=== PATIENT | female | born 1950 | race Caucasian/White ===

== ENCOUNTER 2023-10-26 08:36 | Outpatient (RCR) | payer MEDICARE, BC, SELFPAY ==
--- NOTE | 2023-10-26 09:36 | PT.OPEX ---
PT [facility] Eval Start: 10/26/23 07:47 Freq: Status: Active Protocol: Document 10/26/23 09:25 KLWallace (Rec: 10/26/23 09:36 KLV [id number]) E-signed By Anne-Marie Briceno, PT Physical Therapy Outpatient Evaluation Insurance Information Recert Due Date 01/20/24 Insurance Name Medicare B,Blue Cross/[employer] Medical Diagnosis Right hip OA Pre-op right CARLOS Treating Diagnosis Right hip pain, limited hip ROM, gross LE weakness, antalgic gait Referring MD Nolasco Subjective Subjective Brittanie reports to PT with primary complaint of chronic right hip pain affecting her ability to stand, walk, negotiate stairs and sit for extended periods. X-ray indicating severe OA and candidate for surgery. She notes she is borrowing a friends 4WW, SEC. Has 2 steps to enter house that she feels she would be able to use walker with. Bed, bath and laundry on the main level. able to help as needed . Has a shower bench. Will be doing OP PT in [place]. She does note possible L RC injury and R wrist fx w/surgical intervention however not too concerned with using AD following surgery. PMH: R wrist surgery, fibromyalgia, osteoporosis Pain Comments 10/16 Date of Last Physician Visit 10/16/23 Date of Next Physician Visit 11/12/23 Date of Surgery (If applicable) 11/12/23 Current Work Status Retired Objective Other/Pertinent Objective Antalgic gait: limited stance time R and limited terminal hip extension IR/ER: 5/30 (left 15/45) Negative straight leg raise for tension signs. Severe groin pain with hip ROM. Strength testing limited d/t pain Functional Test Performed & Score LEFS: 1880 Assessment Assessment/Impression Brittanie is a 73 year old female presenting to PT for preparation of upcoming R CARLOS DOS 11/12/23 d/t end stage OA. Session focused on education of anterior hip precautions, post-operative fall prevention precautions, transfers, gait with AD, stair negotiation, post-operative exercises. She is able to verbalize precautions and demonstrated independence with exercises, gait and stairs. She is appropriate to proceed with surgery at this time. Primary Functional Limitations Walking, standing, sitting, negotiating stairs Plan of Care Rehabilitation Potential Good Physical Therapy Goals By end of session today, patient will... Demonstrate appropriate gait pattern with FWW to utilize post surgery for optimal safety when ambulating Demonstrate ability to negotiate stairs using appropriate stair pattern post surgery for optimal safety when at home and in community Verbalize understanding of most appropriate home set up including needed equipment for optimal safety and recovery post surgery Be independent in HEP program to show ability to perform appropriate exercises post surgery Treatment Plan/Direct Interventions Gait Training,Ice/Cold/ Vasopneumatic,Joint Mobilization,Manual Therapy, Neuromuscular Re-ed,Self-Care/ Home Management,Therapeutic Activities,Therapeutic Exercises Frequency/Duration 1 time prior to surgery Patient Will Be Discharged From Therapy Completion of LTG(s), Independent w/HEP, Independently Progressing Evaluation Billing Untimed Code Treatment Minutes 20 Complexity Low Certification Information Initial Certification Date 10/26/23 Ending Certification Date 01/20/24 Provider Signature Required Yes Provider Signature Shows Agreement With POC & Medical Necessity Physician NPI Number Write NPI# Here Physician Comment/Change : Physician Signature & Date Requested Please Sign/Date Here
== END 2023-11-06 08:44 | disposition home or self-care (01) ==
PROVIDERS: Visit Provider Orthopaedic Surgery Sports Medicine
DX: M16.11 Unilateral primary osteoarthritis, right hip (principal); Z96.641 Presence of right artificial hip joint; M25.551 Pain in right hip; Z74.09 Other reduced mobility; R26.9 Unspecified abnormalities of gait and mobility; R29.898 Other symptoms and signs involving the musculoskeletal system; Z51.89 Encounter for other specified aftercare
CPT/HCPCS: 97161; 97535

== ENCOUNTER 2023-11-15 05:51 | Day surgery (SDC) | payer MEDICARE, BC, SELFPAY ==
[2023-11-15] VITALS (26 sets, daily range): BP systolic 118–156; BP diastolic 54–76; PULSE 48–95; RESP 12–16; TEMP 36–36.8; O2SAT 91–100; BMI 23.6
[2023-11-15] MEDS: OXYCODONE (CR) 10 MG TAB.ER.12H PO (06:30)
[2023-11-15] MEDS: ACETAMINOPHEN 500 MG TABLET 1000 MG PO ×2 (06:30→18:30)
[2023-11-15] MEDS: LACTATED RINGERS 1000 ML 1,000 ML 100 ML IV ×2 (06:45→12:51)
[2023-11-15] MEDS: SODIUM CHLORIDE 0.9 % (FLUSH) 10 ML SYRINGE IVF (06:45)
[2023-11-15] MEDS: CELECOXIB 200 MG CAPSULE PO (07:00)
--- NOTE | 2023-11-15 07:07 | SUR.PREOP ---
TIME?OUT:?0709 PT/RN/MDA?VERIFICATION?OF?SURGICAL?SITE,?PROCEDURE,?AND?CONSENT OBTAINED?PRIOR?TO?INVASIVE?PROCEDURE.
[2023-11-15] MEDS: MIDAZOLAM HCL 1 MG/ML inj IVP (07:10)
[2023-11-15] MEDS: fentaNYL 100 MCG/2 ML inj IVP (07:10)
--- NOTE | 2023-11-15 07:21 | CRLHL7_ITS ---
For Patients: As a result of the Cures Act, medical imaging exams and procedure reports are released immediately into your electronic medical record. You may view this report before your referring provider. If you have questions, please contact your health care provider. Indication: Hip replacement surgery Technique: AP hip fluoroscopic images. Fluoroscopy time 76.9 seconds. Findings/Impression: Hardware from a right total hip arthroplasty is in satisfactory position. Dictated by Ralph Martinez MD @ 11/16/2023 5:19:49 AM (Electronically Signed)
[2023-11-15] MEDS: CEFAZOLIN 2 GM INJ IVP (07:48)
[2023-11-15] MEDS: TRANEXAMIC ACID 100 MG/ML INJ 1000 MG IV (07:58)
--- NOTE | 2023-11-15 08:13 | P.NB_ITS ---
Nerve Block Nerve Block Time Seen by Provider: 07:14 Date Seen: 11/15/23 Type of block requested by surgeon for post-operative analgesia: SHERRELL/LFCN Side: right Time out performed: Yes Verification of patient name: Yes Verification of date of : Yes Site marking: site marked Name of person performing procedure: Rafael Continuous monitoring Was continuous monitoring of O2 sat, B/P, technician automatic, recorded every 15 minutes?: Yes Procedure Checklist: sterile prep, needles and gloves Ultrasound guided. Images saved: Yes Medications given in 5ml increments after negative aspiration: Ropivicaine %: 0.5 mL: 30 Needle gauge: 20 Decadron (mg): 10 Precedex (mcg): 25 Patient tolerated procedure well: Yes Additional comments: Needle noted below psoas tendon needle noted adjacent to LFCN Block Charges Block Charge (with Pro Fee): Other Periph Nerve Block Use of Ultrasound Machine for Block: Yes- US Guidance/pain block
--- NOTE | 2023-11-15 08:14 | W.ANESCHARGE ---
Anesthesia Charges Start Date/Time Anesthesia Start Date: 11/15/23 Anesthesia Start Time: 07:23 Stop Date/Time Anesthesia Stop Date: 11/15/23 Anesthesia Stop Time: 09:50 Summary Extremes of Age - Over 70 or under 1: MDA
--- NOTE | 2023-11-15 09:05 | CRLHL7_ITS ---
For Patients: As a result of the Cures Act, medical imaging exams and procedure reports are released immediately into your electronic medical record. You may view this report before your referring provider. If you have questions, please contact your health care provider. Indication: POST OP CARLOS Technique: AP pelvis and lateral view right hip Findings/Impression: Hardware from a right total hip arthroplasty is in satisfactory position. Bone alignment is normal. No sign of acute fracture. Postop changes are within normal limits. Dictated by Ralph Martinez MD @ 11/16/2023 5:21:32 AM (Electronically Signed)
--- NOTE | 2023-11-15 09:07 | PM.ORPRC ---
Procedure Note Date of procedure: 11/15/23 Procedure: PREOPERATIVE DIAGNOSIS: Right hip osteoarthritis POSTOPERATIVE DIAGNOSIS: Right hip osteoarthritis NAME OF OPERATION: Right total hip arthroplasty SURGEON: Buddy Maier MD BOWLING OR SKATING FRONT DESK CLERK: Apolonia Vigil PA-C, WILLY Singleton IMPLANTS: 1. [employer] [place] # 52 sector ingrowth cup 2. 36 x 52 neutral polyethylene 3. Actis # 6 standard collared ingrowth stem 4. 36 + 1.5 ceramic femoral head ANESTHESIA: Spinal ESTIMATED BLOOD LOSS: 250 cc COMPLICATIONS: None SPECIMENS: None DRAINS: None PREOPERATIVE ANTIBIOTICS: Ancef 1 g INDICATIONS: The patient is a 73-year-old with a longstanding history of severe, unrelenting right hip pain secondary to end-stage right hip osteoarthritis. Despite appropriate nonoperative management, including activity modification, use of an assist device, anti-inflammatories, [id number]-[id number] pain medication, physical therapy and injections, they continue to have pain and disability. Operative intervention was offered. The risks, benefits and expected outcomes were discussed in detail. These included but were not limited to: Infection, bleeding, injury to blood vessel or nerve, venous thromboembolism. All questions were answered to their satisfaction. Use of an perinatal breastfeeding assistant was necessary throughout the case for patient positioning and safety, soft tissue retraction and closure. PROCEDURE: Spinal anesthesia was administered. The patient was placed supine on the [place] table. The perinatal breastfeeding assistant made sure the patient was properly positioned. The right hip was prepped and draped in the usual sterile fashion. The image intensifier was brought in for a perfect AP pelvis and a perfect double tear drop AP view of each hip which were used for intraoperative templating with our fluoroscopic guide. An oblique incision was made 3 cm distal and 3 cm lateral to the anterior superior iliac spine. The perinatal breastfeeding assistant retracted the soft tissues to protect them. Subcutaneous dissection was taken with electrocautery to the superficial fascia. The fascia was divided in line with the incision. Blunt dissection was carried medially to the tensor fascia vivien and sartorius interval. Deep dissection was carried with electrocautery. The circumflex vessels were cauterized and divided. The capsule was exposed and then divided in a T-fashion, tagged with #1 Ethibond sutures. Retractors were placed in the joint, held by the perinatal breastfeeding assistant. The corkscrew was placed in the femoral head. The neck cut was made in the subcapital region. We made a second neck cut more distal. The napkin ring of bone was removed. The femoral head was removed intact. Acetabular retractors were placed, held by the perinatal breastfeeding assistant. The labrum was sharply debrided. The capsule was released. The 43 mm reamer was used to the true medial wall. We then enlarged in 2 mm increments using the image intensifier for our reamer placement. We impacted the cup which had excellent purchase. We placed the polyethylene. Attention was then turned to the proximal femur. The limb was placed in 140 degrees of external rotation, maximum extension and adduction. A significant amount of time was spent releasing the capsule to allow us to deliver the femur into the wound and complete the femoral side safely. Retractors were held by the perinatal breastfeeding assistant throughout the femoral preparation. The boxer operator and canal finder were used. Broaches were used to a stable size. The calcar reamer was used. Trial components were placed. The hip was reduced and was found to be stable with appropriate soft tissue tension. Length and offset had been nicely restored using the image intensifier and our fluoroscopic guide. Trial components were removed. The stem was impacted. We placed the femoral head. Again, the hip was reduced and was found to be stable with appropriate soft tissue tension. Length and offset had been nicely restored. The perinatal breastfeeding assistant did a three minute dilute Betadine solution soak. The perinatal breastfeeding assistant irrigated the wound with 3 liters of normal saline via pulse lavage. The perinatal breastfeeding assistant repaired the anterior capsule with a #1 Vicryl and our previously placed Ethibond sutures. The perinatal breastfeeding assistant closed the fascia over the tensor fascia vivien with a #1 PDO Stratafix, subcutaneous tissues with 2-0 Vicryl, skin with a running 3-0 Stratafix and glue. A dry dressing was applied by the perinatal breastfeeding assistant. Sponge and needle counts were correct x 2. The patient tolerated the procedure well; there were no apparent complications. They were awakened and extubated in the operating room, sent to the Post-Anesthesia Care Unit in satisfactory condition. PLAN: 1. The patient will be mobilized with physical therapy, weight-bearing as tolerates 2. Xarelto x 5 days then aspirin x 30 days will be used for DVT prophylaxis 3. The patient will be discharged once medically appropriate
--- NOTE | 2023-11-15 09:54 | W.ANESCHARGE ---
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
--- NOTE | 2023-11-15 10:23 | SUR.PHASEI ---
patient met discharge criteria per anesthesia
[2023-11-15] MEDS: OXYCODONE 5 MG TABLET PO ×2 (12:05→21:34)
--- NOTE | 2023-11-15 14:52 | SUR.PHASEII ---
OT came to work with patient, patient became dizzy & OT did not feel safe having patient go to PT. Dr. Maier updated - decision was made to admit to Med/Surg. Report given to DESTINY Ybarra. Patient brought to room 256.
--- NOTE | 2023-11-15 16:57 | PC.NURSE ---
Addendum entered by Amada Durán RN 11/15/23 17:35: Patient voided and was incont, still having numbness and is unaware when she is voiding. Original Note: Shift Summary: Patient pleasant and cooperative. Up with one assist, walker and gait belt. Has not voided yet. Vitals stable and WNL, maintains o2 sat >90% on RA. Denies nausea, rates pain 3/10 and denies need for medication at this time. Dressing dry and intact with ice applied.
[2023-11-15] MEDS: SENNOSIDES 1 TAB TABLET 2 TAB PO (21:34)
[2023-11-16 03:00] VITALS: BP 149/60; PULSE 81; RESP 16; TEMP 36.3; O2SAT 94
[2023-11-16] MEDS: ACETAMINOPHEN 500 MG TABLET 1000 MG PO (06:14)
--- NOTE | 2023-11-16 06:36 | PC.NURSE ---
End of shift [id number]: A&O pleasant and cooperative. VSS. Reporting pain in hip 06/16. Denies need for PRN pain medication. Pt requested to sleep overnight and not be woken up for scheduled tylenol. Dressing to hip c/d/i. Up w/ SBA walker and GB. Tolerating diet. Using call light appropriately.
[2023-11-16 07:45] VITALS: BP 149/65; PULSE 76; PULSE 83; RESP 16; TEMP 36.8; O2SAT 94
--- NOTE | 2023-11-16 07:52 | P.ORPN_ITS ---
Subjective Subjective Time Seen by Provider: 06:45 Date Seen: 11/16/23 Principal diagnosis: Day 1 s/p right CARLOS, Dr. Maier Interval history: Brittanie is doing well and resting comfortably in her bed. The original intent was for Brittanie to be a [id number] yesterday, however postop she experienced some nausea, dizziness and bilateral feet numbness and it was recommended to stay the night. This morning, she reports she feels great. Pain is 1/10. Denies: Chest pain, shortness of breath, fever, chills, nausea, vomiting, numbness and tingling distally. Denies bowel movement overnight, but admits to flatulence. No acute concerns. Patient feels ready to be discharged home. Ortho Exam Narrative Exam Narrative: Incision/Dressing: Dressing appears clean and dry. No drainage present. Mepilex intact. Right hip appears moderately swollen but supple with no obvious erythema, fluctuance or excessive warmth. Early signs of ecchymosis present mid- bandage. No erythematous streaking. Warmth around the wound is appropriate. Ice is being utilized as needed. CMS: Intact distally with 2+ Dorsalis pedis and Posterior Tibial pulses. 5/5 motor strength dorsal and plantar flexion. Confirmed sensation distally. Calf: Bilateral calves are supple, with no swelling, pain, tenderness, erythema, discoloration or coolness to the touch. Constitutional: Patient is alert and oriented x3. Patient is in no acute distress and converses without labored breathing. Patient is able to make decisions and demonstrates good insight. Patient is pleasant and cooperative. Affect is full range and appropriate for the circumstances. Const Vital Signs, click to edit/add: Vital Signs - 24 hr 11/15/23 09:46 11/15/23 09:50 11/15/23 09:55 Temperature 97.5 F L 97.5 F L 97.5 F L Pulse Rate 60 53 L 56 L Pulse Rate [Pulse Oximeter] Pulse Rate [Right Dorsalis Pedis] Respiratory Rate 14 13 12 Blood Pressure 118/69 123/60 132/61 Blood Pressure [Right Arm] Pulse Oximetry 98 94 97 Oxygen Delivery Method Room Air Room Air Room Air Oxygen Flow Rate 11/15/23 10:00 11/15/23 10:05 11/15/23 10:10 Temperature 97.5 F L 97.5 F L 97.5 F L Pulse Rate 61 56 L 62 Pulse Rate [Pulse Oximeter] Pulse Rate [Right Dorsalis Pedis] Respiratory Rate 12 12 14 Blood Pressure 131/69 137/66 148/67 H Blood Pressure [Right Arm] Pulse Oximetry 98 96 96 Oxygen Delivery Method Room Air Room Air Room Air Oxygen Flow Rate 11/15/23 10:15 11/15/23 10:20 11/15/23 10:30 Temperature 97 F L 96.8 F L Pulse Rate 55 L 53 L 48 L Pulse Rate [Pulse Oximeter] Pulse Rate [Right Dorsalis Pedis] Respiratory Rate 14 14 14 Blood Pressure 140/67 H 141/60 H 141/60 H Blood Pressure [Right Arm] Pulse Oximetry 96 94 94 Oxygen Delivery Method Room Air Room Air Nasal Cannula Oxygen Flow Rate 2 11/15/23 10:45 11/15/23 11:00 11/15/23 11:15 Temperature Pulse Rate 58 L 57 L 68 Pulse Rate [Pulse Oximeter] Pulse Rate [Right Dorsalis Pedis] Respiratory Rate 14 14 16 Blood Pressure 137/65 139/58 L 131/54 L Blood Pressure [Right Arm] Pulse Oximetry 100 100 99 Oxygen Delivery Method Nasal Cannula Nasal Cannula Room Air Oxygen Flow Rate 2 2 11/15/23 11:30 11/15/23 12:00 11/15/23 12:30 Temperature Pulse Rate 63 65 69 Pulse Rate [Pulse Oximeter] Pulse Rate [Right Dorsalis Pedis] Respiratory Rate 16 16 16 Blood Pressure 136/55 L 133/56 L 142/56 H Blood Pressure [Right Arm] Pulse Oximetry 93 92 98 Oxygen Delivery Method Room Air Room Air Room Air Oxygen Flow Rate 11/15/23 13:00 11/15/23 14:58 11/15/23 15:00 Temperature 98 F Pulse Rate 70 95 Pulse Rate [Pulse Oximeter] Pulse Rate [Right Dorsalis Pedis] Respiratory Rate 16 16 16 Blood Pressure 139/76 137/64 Blood Pressure [Right Arm] Pulse Oximetry 99 91 91 Oxygen Delivery Method Room Air Room Air Room Air Oxygen Flow Rate 2 11/15/23 16:26 11/15/23 17:33 11/15/23 19:00 Temperature 98 F 97.8 F 98 F Pulse Rate 64 90 Pulse Rate [Pulse Oximeter] Pulse Rate [Right Dorsalis Pedis] 83 Respiratory Rate 15 16 16 Blood Pressure 144/62 H 145/75 H Blood Pressure [Right Arm] 144/69 H Pulse Oximetry 95 94 97 Oxygen Delivery Method Room Air Room Air Oxygen Flow Rate 11/15/23 23:30 11/15/23 23:38 11/16/23 03:00 Temperature 98.2 F 97.3 F L Pulse Rate Pulse Rate [Pulse Oximeter] 69 81 Pulse Rate [Right Dorsalis Pedis] Respiratory Rate 16 16 16 Blood Pressure Blood Pressure [Right Arm] 152/64 H 149/60 H Pulse Oximetry 94 94 94 Oxygen Delivery Method Room Air Room Air Room Air Oxygen Flow Rate Assessment and Plan Assessment and plan (1) Status post total hip replacement, right: Problem details: DOS: 11/15/23. Dr. Maier Status: Acute Assessment and Plan: - Complete 23 hour perioperative antibiotics. - PT/OT consults for education and assistance. Outpatient PT already scheduled to begin next week. - Weight bear as tolerated with a walker for assistance. - Prescribed analgesics as needed. Patient is content with current narcotic medications. Minimize narcotic pain medication use; wean off and discontinue as soon as possible. - DVT prophylaxis: Xarelto x 5 days followed by aspirin 81 mg BID x 30 days. Also, frequent ambulation and ankle pumps when sedentary. - Social consult for discharge planning. - Anticipate patient will be discharged to home today if the patient remains medically stable, pain is controlled and is safe with ambulation. - Return to clinic in 1 week for a wound check. Mepilex dressing will be removed at this appointment. Remove sooner if dressing becomes saturated. - Return to clinic in [address] Maier. - Phone Orthopedics with any questions or concerns. [phone]
[2023-11-16] MEDS: RIVAROXABAN 10 MG TABLET PO (09:04)
[2023-11-16] MEDS: SENNOSIDES 1 TAB TABLET 2 TAB PO (09:05)
[2023-11-16 11:14] VITALS: BP 135/56; PULSE 86; RESP 16; TEMP 36.9; O2SAT 94
--- NOTE | 2023-11-16 12:02 | PC.NURSE ---
discharge. pt is very pleasant. she is Up with one assist, walker and gait belt. she is eating, drinking and voiding. Dressing is C/D/I. with ice applied. SL was d/c went over discharge packet with pt and family. went over medications., appointment, education and instruction. pt went over and signed personal belonging sheet. pt got a w/c ride to car and was helped in to car.
== END 2023-11-16 12:00 | disposition home or self-care (01) ==
LOC: OR 05:53 → MEDSURG 15:04
PROVIDERS: Visit Provider Orthopaedic Surgery
PROC: (CPT 27130; principal; 2023-11-15 07:15)
DX: M16.11 Unilateral primary osteoarthritis, right hip (principal); G89.18 Other acute postprocedural pain; R11.0 Nausea; R42 Dizziness and giddiness; R20.0 Anesthesia of skin
CPT/HCPCS: 27130; 01214; 36415; 64450; 73501; 73502; 76000; 76942; 86850; 86900; 86901; 97110; 97116; 97161; 97165; 97535; 99100; A9270; C1776; J0330; J0690; J1100; J2250; J2405; J2704; J2795; J3010; J7120